=== PATIENT | male | born 1985 | race Caucasian/White ===

== ENCOUNTER → 2019-01-26 | Outpatient (CLI) | payer OTHER ==
[~2019-01-26] MED LIST: ACET325 PO; CEPH500 PO; CIPR500 PO; FLUO20; HYDACE5 PO; IBUP800 PO; PENVK500 PO; RISP2; TESTOSTERO200 MG/1 M IM; VENL150ER PO
== END | disposition home or self-care (01) ==
LOC: LAB 12:02 → LAB SHORT 12:02 → EDSTATUS 11-28 11:05 → LAB FUT 11-28 11:05
DX: Z30.9 Encounter for contraceptive management, unspecified (principal)

== ENCOUNTER → 2024-09-24 | Outpatient (CLI) | payer OTHER ==
[2024-09-24 14:40] LABS: U Amphetamine Screen Not Detected; U Barbituate Screen DETECTED; U Benzodiazapine Screen Not Detected; U Buprenorphine Screen Not Detected; U Cannabinoids Screen DETECTED; U Cocaine Screen Not Detected; U Methadone Screen Not Detected; U Methamphetamine Screen Not Detected; U Opiates Screen Not Detected; U Oxycodone Screen Not Detected; U Phencyclidine Screen Not Detected
[2024-09-27 18:40] LABS: 11-NOR-9-CARBOXY-THC,URN,QUANT 280 ng/mL
== END | disposition home or self-care (01) ==
LOC: LAB SHORT 11:29 → LAB 11:29
PROVIDERS: Nurse Practitioner Psychiatric/Mental Health
DX: F90.2 Attention-deficit hyperactivity disorder, combined type (principal)
CPT/HCPCS: G0480